=== PATIENT | female | born 1950 | race Caucasian/White ===

== ENCOUNTER → 2017-04-29 | Outpatient (CLI) | payer MEDICARE, OTHER ==
--- NOTE | 2017-05-02 07:35 | MM ---
Reason for exam: screening (asymptomatic). Last mammogram was performed 1 year ago. History: Patient is postmenopausal. Took estrogen for 2 years beginning at age 51. Physical Findings: A clinical breast exam by your physician is recommended on an annual basis and results should be correlated with mammographic findings. MG 3D Screening Mammo W/Cad Bilateral CC, MLO, and XCCL view(s) were taken. Prior study comparison: April 16, 2016, bilateral MG screening mammo w CAD. There are scattered fibroglandular densities. Finding: There is a increased 4 mm equal density, indistinct irregular mass located 6 cm from the nipple in the lower outer quadrant, anterior position of the left breast. New finding since April 16, 2016. ASSESSMENT: Incomplete: need additional imaging evaluation, BI-RAD 0 RECOMMENDATION: Special view mammogram of the left breast. If lesion persists on supplemental views, image directed ultrasound is recommended. [facility] will attempt to contact patient to return for supplemental views and ultrasound if indicated.
== END | disposition home or self-care (01) ==
LOC: RADMAMWWP 10:56
PROVIDERS: ATTEND Family Medicine
DX: Z12.31 Encounter for screening mammogram for malignant neoplasm of breast (principal)
CPT/HCPCS: 77063; G0202

== ENCOUNTER → 2017-05-12 | Outpatient (CLI) | payer MEDICARE, OTHER ==
--- NOTE | 2017-05-12 14:49 | MM ---
Reason for exam: additional evaluation requested from abnormal screening. Last mammogram was performed less than 1 month ago. History: Patient is postmenopausal. Took estrogen for 2 years beginning at age 51. Physical Findings: Nurse did not find any significant physical abnormalities on exam. MG 3D Work Up W/Cad LT CC, MLO, and ML view(s) were taken of the left breast. Prior study comparison: April 29, 2017, bilateral MG 3d screening mammo w/cad. April 16, 2016, bilateral MG screening mammo w CAD. April 11, 2015, bilateral MG screening mammo w CAD. April 06, 2014, bilateral MG screening mammo w CAD. The asymmetry disperses on spot tomosynthesis CC view. On spot tomosynthesis MLO view no underlying mass or architectural distortion is seen. Some asymmetric density persists and a precautionary 6 month follow up is recommended. These results were verbally communicated with the patient and result sheet given to the patient on 05/12/17. ASSESSMENT: Probably benign, BI-RAD 3 RECOMMENDATION: Follow-up diagnostic mammogram of the left breast in 6 months.
== END | disposition home or self-care (01) ==
LOC: RADMAMWWP 13:53
PROVIDERS: ATTEND Family Medicine
DX: R92.8 Other abnormal and inconclusive findings on diagnostic imaging of breast (principal)
CPT/HCPCS: G0206; G0279

== ENCOUNTER → 2017-11-17 | Outpatient (CLI) | payer MEDICARE, OTHER ==
--- NOTE | 2017-11-17 11:02 | MM ---
Reason for exam: follow-up at short interval from prior study. Last mammogram was performed 6 months ago. History: Patient is postmenopausal. Took estrogen for 2 years beginning at age 51. Physical Findings: Nurse Summary: nodule in the left breast at 7 o'clock (nurse ms). MG 3D Diag Mammo W/Cad LT CC and MLO view(s) were taken of the left breast. Prior study comparison: May 12, 2017, left breast MG 3d work up w/cad LT. April 29, 2017, bilateral MG 3d screening mammo w/cad. There are scattered fibroglandular densities. Finding: There are typically benign round calcifications in the left breast. There is no discrete abnormality. These results were verbally communicated with the patient and result sheet given to the patient on 11/17/17. ASSESSMENT: Benign, BI-RAD 2 RECOMMENDATION: Return to routine screening mammogram schedule for both breasts. Back on schedule.
== END | disposition home or self-care (01) ==
LOC: RADMAMWWP 10:02
PROVIDERS: ATTEND Family Medicine
DX: R92.8 Other abnormal and inconclusive findings on diagnostic imaging of breast (principal)
CPT/HCPCS: 77065; G0279

== ENCOUNTER → 2018-05-14 | Outpatient (CLI) | payer MEDICARE, OTHER ==
--- NOTE | 2018-05-14 14:31 | MM ---
Reason for exam: screening (asymptomatic). Last mammogram was performed 6 months ago. History: Patient is postmenopausal. Took estrogen for 2 years beginning at age 51. Physical Findings: A clinical breast exam by your physician is recommended on an annual basis and results should be correlated with mammographic findings. MG 3D Screening Mammo W/Cad Bilateral CC and MLO view(s) were taken. Prior study comparison: November 17, 2017, left breast MG 3d diag mammo w/cad LT. May 12, 2017, left breast MG 3d work up w/cad LT. There are scattered fibroglandular densities. There are benign appearing round calcifications in the left breast. Asymmetric breast tissue in the left breast stable from 2017. There is no discrete abnormality. ASSESSMENT: Benign, BI-RAD 2 RECOMMENDATION: Routine screening mammogram of both breasts in 1 year.
== END | disposition home or self-care (01) ==
LOC: RADMAMWWP 09:50
PROVIDERS: ATTEND Family Medicine
DX: Z12.31 Encounter for screening mammogram for malignant neoplasm of breast (principal)
CPT/HCPCS: 77063; 77067

== ENCOUNTER → 2019-03-22 | Outpatient (CLI) | payer MEDICARE ==
--- NOTE | 2019-03-22 14:05 | BD ---
EXAMINATION TYPE: Axial Bone Density DATE OF EXAM: 03/22/2019 COMPARISON: 2002 CLINICAL HISTORY: Disorder of bone, M 89.9 Height: 70.5 Weight: 172 FRAX RISK QUESTIONS: Alcohol (3 or more units per day): no Family History (Parent hip fracture): unsure Glucocorticoids (More than 3mos): no (Ex: prednisone, prednisolone, methylprednisolone, dexamethasone, and hydrocortisone). History of Fracture in Adulthood: yes Secondary Osteoporosis: 1. Type 1 Diabetes: no 2. Hyperthyroidism: no 3. Menopause before 45: no 4. Malnutrition: no 5. Chronic liver disease: no Rheumatoid Arthritis: no Current Tobacco Use: no RISK FACTORS HISTORY OF: History of Wrist Fracture: yes When: about 20 years ago Family History of Osteoporosis: unsure Active: yes Diet low in dairy products/other sources of calcium: no Postmenopausal woman: yes Take estrogen and/or progesterone medications: not now How long: about age [age] Lost more than 2 inches in height since high school: no Frequent falls: no Poor Health: no Hyperparathyroidism: no Adrenal Insufficiency: no MEDICATIONS: Thyroid Medications: no Osteoporosis Medications: not now Which medication: Fosamax How Long: unsure Additional Medications: calcium, blood pressure meds, water pills Additional History: none to note EXAM MEASUREMENTS: Bone mineral densitometry was performed using the [employer] System. Bone mineral density as measured about the Lumbar spine is: ----- L1-L4(G/cm2): 1.134 T Score Values are as follows: ----- L2: 0.0 ----- L3: -1.2 ----- L4: 0.9 ----- L1-L4: -0.4 Bone mineral density has: Increased 15.0% since study of: 11/02/2002 Bone mineral density about the R hip (g/cm2):0.813 Bone mineral density about the L hip (g/cm2): 0.875 T Score values are as follows: -----R Neck: -1.6 -----L Neck: -1.2 -----R Total: -1.4 -----L Total: -1.0 Bone mineral density has: Increased 10.0% since study of: 11/02/2002 IMPRESSION: Osteopenia (T Score between -2.5 and -1). There is slightly increased risk of fracture and the patient may be considered for treatment. Re-Screen 2-5 years. NOTE: T-SCORE=SD OF THE YOUNG ADULT MEAN.
== END | disposition home or self-care (01) ==
LOC: RADBDWWP 08:21
PROVIDERS: ATTEND Family Medicine
DX: M85.89 Other specified disorders of bone density and structure, multiple sites (principal)
CPT/HCPCS: 77080

== ENCOUNTER → 2019-05-28 | Outpatient (CLI) | payer MEDICARE ==
--- NOTE | 2019-06-01 10:08 | MM ---
Reason for exam: screening (asymptomatic). Last mammogram was performed 1 year ago. History: Patient is postmenopausal. Took estrogen for 2 years beginning at age 51. Physical Findings: A clinical breast exam by your physician is recommended on an annual basis and results should be correlated with mammographic findings. MG 3D Screening Mammo W/Cad Bilateral CC and MLO view(s) were taken. Prior study comparison: May 14, 2018, bilateral MG 3d screening mammo w/cad. November 17, 2017, left breast MG 3d diag mammo w/cad LT. The breast tissue is heterogeneously dense. This may lower the sensitivity of mammography. No suspicious abnormality. No significant changes when compared with prior studies. ASSESSMENT: Negative, BI-RAD 1 RECOMMENDATION: Routine screening mammogram of both breasts in 1 year.
== END | disposition home or self-care (01) ==
LOC: RADMAMWWP 09:26
PROVIDERS: ATTEND Family Medicine
DX: Z12.31 Encounter for screening mammogram for malignant neoplasm of breast (principal)
CPT/HCPCS: 77063; 77067

== ENCOUNTER → 2020-06-14 | Outpatient (CLI) | payer MEDICARE ==
--- NOTE | 2020-06-19 13:29 | MM ---
Reason for exam: screening (asymptomatic). Last mammogram was performed 1 year and 1 month ago. History: Patient is postmenopausal. Took estrogen for 2 years beginning at age 51. Physical Findings: A clinical breast exam by your physician is recommended on an annual basis and results should be correlated with mammographic findings. MG 3D Screening Mammo W/Cad Bilateral CC and MLO view(s) were taken. Prior study comparison: May 28, 2019, bilateral MG 3d screening mammo w/cad. May 14, 2018, bilateral MG 3d screening mammo w/cad. There are scattered fibroglandular densities. There are benign appearing round calcifications in the left breast. There is no discrete abnormality. ASSESSMENT: Benign, BI-RAD 2 RECOMMENDATION: Routine screening mammogram of both breasts in 1 year.
== END | disposition home or self-care (01) ==
LOC: RADMAMWWP 11:45
PROVIDERS: ATTEND Family Medicine
DX: Z12.31 Encounter for screening mammogram for malignant neoplasm of breast (principal)
CPT/HCPCS: 77063; 77067

== ENCOUNTER → 2021-06-19 | Outpatient (CLI) | payer MEDICARE ==
--- NOTE | 2021-06-21 10:24 | MM ---
Reason for exam: screening (asymptomatic). Last mammogram was performed 1 year ago. History: Patient is postmenopausal. Took estrogen for 2 years beginning at age 51. Physical Findings: A clinical breast exam by your physician is recommended on an annual basis and results should be correlated with mammographic findings. MG 3D Screening Mammo W/Cad Bilateral CC, MLO, and XCCL view(s) were taken. Prior study comparison: June 14, 2020, bilateral MG 3d screening mammo w/cad. May 28, 2019, bilateral MG 3d screening mammo w/cad. There are scattered fibroglandular densities. No significant changes when compared with prior studies. ASSESSMENT: Benign, BI-RAD 2 RECOMMENDATION: Routine screening mammogram of both breasts in 1 year.
== END | disposition home or self-care (01) ==
LOC: RADMAMWWP 11:06
PROVIDERS: ATTEND Family Medicine
DX: Z12.31 Encounter for screening mammogram for malignant neoplasm of breast (principal)
CPT/HCPCS: 77063; 77067

== ENCOUNTER → 2022-06-20 | Outpatient (CLI) | payer MEDICARE ==
--- NOTE | 2022-06-20 17:08 | BD ---
EXAMINATION TYPE: Axial Bone Density DATE OF EXAM: 06/20/2022 CLINICAL HISTORY: 72 years year old Female. ICD-10 CODE: Z78.0 asymptomatic Height: 5 FT 10 IN Weight: 152 FRAX RISK QUESTIONS: Alcohol (3 or more units per day): NO Family History (Parent hip fracture): NO Glucocorticoids (More than 3mos): NO (Ex: prednisone, prednisolone, methylprednisolone, dexamethasone, and hydrocortisone). History of Fracture in Adulthood: YES Secondary Osteoporosis: 1. Type 1 Diabetes: NO 2. Hyperthyroidism: NO 3. Menopause before 45: NO 4. Malnutrition: NO 5. Chronic liver disease: NO Rheumatoid Arthritis: NO Current Tobacco Use: NO RISK FACTORS HISTORY OF: History of Wrist Fracture: LEFT WRIST When: 40 YEARS AGO Surgery to Spine/Hip(right/left)/Wrist (right/left): NO Family History of Osteoporosis: YES Active: YES Diet low in dairy products/other sources of calcium: NO Postmenopausal woman: YES Take estrogen and/or progesterone medications: NONE NOW Lost more than 2 inches in height since high school: YES Frequent falls: NO Poor Health: GOOD Hyperparathyroidism: NO Adrenal Insufficiency: NO MEDICATIONS: Additional Medications: BLOOD PRESSURE MEDS, H2O PILL ,XANAX WHEN NEEDED Additional History: EXAM MEASUREMENTS: Bone mineral densitometry was performed using the [employer] System. Bone mineral density as measured about the Lumbar spine is: ----- L1-L4(G/cm2): 1.114 T Score Values are as follows: ----- L1: -1.5 ----- L2: -0.3 ----- L3: -1.2 ----- L4: 0.5 ----- L1-L4: -0.5 Bone mineral density has: DECREASED -2.2 % since study of: 2018 Bone mineral density about the R hip (g/cm2): 0.799 Bone mineral density about the L hip (g/cm2): 0.832 T Score values are as follows: -----R Neck: -1.7 -----L Neck: -1.5 -----R Total: -1.7 -----L Total: -1.2 Bone mineral density has: DECREASED -4.0 % since study of: 2019 FRAX%s: The graph provided illustrates a 16.4 % chance for a major osteoporotic fx and a 3.3 % chance for the hips probability for fx in 10 years time. IMPRESSION: Osteopenia (T Score between -2.5 and -1). There is slightly increased risk of fracture and the patient may be considered for treatment. Re-Screen 2-5 years. NOTE: T-SCORE=SD OF THE YOUNG ADULT MEAN.
--- NOTE | 2022-06-21 09:57 | MM ---
Reason for Exam: Screening (asymptomatic). Last screening mammogram was performed 12 month(s) ago. Patient History: Menarche at age 11. First Full-Term at age 20. Postmenopausal. Estrogen for 2 years from age 51 until age 53. Risk Values: Vivian 5 year model risk: 1.6%. NCI Lifetime model risk: 3.9%. Prior Study Comparison: 04/29/2017 Bilateral Screening Mammogram, [facility]. 05/12/2017 Left Diagnostic Mammogram, [facility]. 11/17/2017 Left Diagnostic Mammogram, [facility]. 05/14/2018 Bilateral Screening Mammogram, [facility]. 05/28/2019 Bilateral Screening Mammogram, [facility]. 06/14/2020 Bilateral Screening Mammogram, [facility]. 06/19/2021 Bilateral Screening Mammogram, [facility]. Tissue Density: There are scattered fibroglandular densities. Findings: Analyzed By CAD. There is no suspicious group of microcalcifications or new suspicious mass in either breast. Overall Assessment: Negative, BI-RAD 1 Management: Screening Mammogram of both breasts in 1 year. A clinical breast exam by your physician is recommended on an annual basis and results should be correlated with mammographic findings. [facility] will attempt to contact patient to return for supplemental views and ultrasound if indicated. Electronically signed and approved by: Sandro Chacon DO
== END | disposition home or self-care (01) ==
LOC: RADMAMWWP 10:44
PROVIDERS: ATTEND Family Medicine
DX: Z12.31 Encounter for screening mammogram for malignant neoplasm of breast (principal); Z78.0 Asymptomatic menopausal state
CPT/HCPCS: 77063; 77067; 77080

== ENCOUNTER → 2023-06-23 | Outpatient (CLI) | payer MEDICARE ==
--- NOTE | 2023-06-24 12:12 | MM ---
Reason for Exam: Screening (asymptomatic). Last screening mammogram was performed 12 month(s) ago. Patient History: Menarche at age 11. First Full-Term at age 20. Postmenopausal. Estrogen for 2 years from age 51 until age 53. Risk Values: Vivian 5 year model risk: 1.6%. NCI Lifetime model risk: 3.7%. Prior Study Comparison: 06/14/2020 Bilateral Screening Mammogram, [facility]. 06/19/2021 Bilateral Screening Mammogram, [facility]. 06/20/2022 Bilateral MG 3D screening mammo w/cad, [facility]. Tissue Density: There are scattered fibroglandular densities. Findings: Analyzed By CAD. Pattern appears symmetrical and stable. No significant interval change is evident. Benign spherical calcifications are present within the left breast. Vascular calcifications within the right breast. No suspicious groups of microcalcifications, spiculated or lobular masses, architectural distortion or other secondary signs of malignancy are mammographically apparent. Overall Assessment: Benign, BI-RAD 2 Management: Screening Mammogram of both breasts in 1 year. A negative mammogram report should not preclude additional follow up of suspicious palpable abnormalities. Patient should continue monthly self breast exam. A clinical breast exam by your physician is recommended on an annual basis and results should be correlated with mammographic findings. Electronically signed and approved by: Elías Jeong D.O. Radiologis
== END | disposition home or self-care (01) ==
LOC: RADMAMWWP 09:51
PROVIDERS: ATTEND Family Medicine
DX: Z12.31 Encounter for screening mammogram for malignant neoplasm of breast (principal); Z78.0 Asymptomatic menopausal state
CPT/HCPCS: 77063; 77067

== ENCOUNTER 2024-07-16 08:32 | Day surgery (SDC) | payer MEDICARE ==
[~2024-07-16 08:32] MED LIST: SODIUM CHLORIDE 0.9% 1,000 ML IV SCH
[2024-07-16 08:57] VITALS: TEMP 97.5
[2024-07-16] MEDS: SODIUM CHLORIDE 0.9% 500 ML 500 ML IV SCH (09:32)
[2024-07-16] MEDS: hydrALAZINE HCL 20 MG/ML 1 ML VIAL IVP STA (09:34)
[2024-07-16] MEDS: IV FLUID CONTINUATION 500 ML IV ONE (09:37)
[2024-07-16] MEDS ORDERED: LIDOCAINE 1% INJ 10MG/ML (20 ML MDV) ONE (10:00)
[2024-07-16] MEDS ORDERED: PROPOFOL 10 MG/ML 20 ML VIAL IV ONE (10:00)
[2024-07-16 10:08] LABS: ALT 18 U/L (4-34); AST 25 U/L (14-36); African American GFR (CKD) 71 (>60 ml/min/1.73 sqM); Albumin 4.9 g/dL (3.5-5.0); Alkaline Phosphatase 61 U/L (38-126); Anion Gap 8 mmol/L; Blood Urea Nitrogen 17 mg/dL (7-17); Calcium 9.8 mg/dL (8.4-10.2); Carbon Dioxide 28 mmol/L (22-30); Chloride 100 mmol/L (98-107); Glucose 95 mg/dL (74-99); Non-African American GFR(CKD) 62 (>60 ml/min/1.73 sqM); Sodium 136 mmol/L (137-145); Total Bilirubin 1.1 mg/dL (0.2-1.3); Total Protein 7.7 g/dL (6.3-8.2)
[2024-07-16 11:29] VITALS: RESP 16
[2024-07-16 12:11] VITALS: BP 155/88; PULSE 80
--- NOTE | 2024-07-16 13:07 | P.TEE ---
Date of Procedure: 07/16/24 Description of Procedure(s): Procedure performed: 1. Transesophageal Echocardiogram. With spectral Doppler, color Doppler, bubble study, 2. Synchronized Cardioversion. Indications: Persistent atrial fibrillation Consent: I have discussed the risks, benefits and alternative therapies for the above-mentioned procedure. The patient has indicated understanding and acceptance of the risks of the procedure. Signed consent was obtained and was placed in the paper chart. Moderate conscious sedation: Moderate conscious sedation was administered by anesthesia, see separate report. Procedural Steps: Timeout was performed in usual fashion. Patient's heart rate, blood pressure, oxygen saturation and ECG were monitored. After achieving appropriate moderate conscious sedation, KATIA KATIA probe was advanced without difficulty and without any immediate complications to the esophagus. KATIA study was performed with color flow doppler, pulsed wave doppler and continuous wave doppler. Agitated saline bubbles were injected to assess for any intra-atrial shunt. The probe was then removed. SYNCHRONIZED CARDIOVERSION After making sure that there is no evidence of intracardiac thrombus, pacer pads were placed and secured on patients chest and back. Synchronized cardioversion was perfromed using [150] J. [1] attempt. Sinus rhythm was confirmed with a 12 lead EKG. Patient tolerated the procedure well. Patient was transferred to the post procedure area in stable and satisfactory condition. Complications: none Blood loss: none FINDINGS Left Atrium: Severely dilated LA. No evidence of mass or thrombus seen Left Atrial Appendage: No evidence of thrombus or mass seen in HUMBERTO,. Dilated left atrial appendage. Inter atrial septum: Intact inter-atrial septum. No evidence of atrial septal defect or patent foramen ovale on color doppler. No evidence of intracardiac shunting from right to left on the bubble study. Left Ventricle: Normal global LV size and systolic function Right Atrium: Normal overall RA size Right Ventricle: Normal global RV size and systolic function Aortic Valve: Structurally normal Trileaflet, no significant calcification. No significant stenosis or regurgitation on color doppler assessment. Mitral Valve: Struturally normal. No evidence of prolapse. Mild mitral regurgitation, likely functional. Pulmonic Valve: Mild pulmonic regurgitation Tricuspid Valve: Structurally normal. Mild tricuspid regurgitation. Ascending aorta, Aortic root and Aortic arch: Mild intimal thickening. Normal size ascending aorta 3.5 cm. Descending aorta: Mild intimal thickening. CONCLUSION: Severe left atrial dilatation No evidence of thrombus in left atrial appendage or left atrium. Preserved LV size and systolic function No major valvular abnormality Successful cardioversion 1 attempt 150 J. Plan Continue Eliquis without interruption, continue metoprolol succinate 50 mg daily. Follow-up outpatient in cardiology office. Ashkan Humphreys MD, RPVI, FACC Thank you for allowing [facility] to participate in this patient's care. Feel free to reach out in case of any followup questions.
== END 2024-07-16 12:28 | disposition home or self-care (01) ==
LOC: OR 08:32
PROVIDERS: ATTEND Student in an Organized Health Care Education/Training Program
DX: I51.7 Cardiomegaly (principal); I48.19 Other persistent atrial fibrillation; I10 Essential (primary) hypertension; F17.210 Nicotine dependence, cigarettes, uncomplicated; Z91.89 Other specified personal risk factors, not elsewhere classified; Z96.659 Presence of unspecified artificial knee joint; Z79.01 Long term (current) use of anticoagulants; Z82.49 Family history of ischemic heart disease and other diseases of the circulatory system
CPT/HCPCS: 93312; 93320; 93325; 92960; 80053; J0360; J2003; J2704

== ENCOUNTER → 2024-07-28 | Outpatient (CLI) | payer MEDICARE ==
--- NOTE | 2024-07-29 18:53 | MM ---
Reason for Exam: Screening (asymptomatic). Last mammogram was performed 1 year(s) and 2 month(s) ago. Patient History: Menarche at age 11. First Full-Term at age 20. Postmenopausal. Estrogen for 2 years from age 51 until age 53. Risk Values: Vivian 5 year model risk: 1.6%. NCI Lifetime model risk: 3.4%. Prior Study Comparison: 06/19/2021 Bilateral Screening Mammogram, [facility]. 06/20/2022 Bilateral MG 3D screening mammo w/cad, [facility]. 06/23/2023 Bilateral MG 3D screening mammo w/cad, [facility]. Tissue Density: There are scattered areas of fibroglandular density. Findings: Analyzed By CAD. There is no suspicious group of microcalcifications or new suspicious mass in either breast. Overall Assessment: Negative, BI-RAD 1 Management: Screening Mammogram of both breasts in 1 year. . Patient should continue monthly self-breast exams. A clinical breast exam by your physician is recommended on an annual basis. This exam should not preclude additional follow-up of suspicious palpable abnormalities. Note on Vivian scores and lifetime risk: 1. A Vivian score greater than 3% is considered moderate risk. If this is the case, consider specialist referral to assess eligibility for a risk reducing agent. 2. If overall lifetime risk for the development of breast cancer is 20% or higher, the patient may qualify for future screening with alternating mammogram and breast MRI. [facility], , 07/29/2024 6:50 PM. Electronically signed and approved by: Isabel Nickerson M.D. Radiologist
== END | disposition home or self-care (01) ==
LOC: RADMAMWWP 11:06
PROVIDERS: ATTEND Family Medicine
DX: Z12.31 Encounter for screening mammogram for malignant neoplasm of breast (principal); Z78.0 Asymptomatic menopausal state; R92.323 Mammographic fibroglandular density, bilateral breasts
CPT/HCPCS: 77063; 77067

== ENCOUNTER 2024-11-15 05:33 | Day surgery (SDC) | payer MEDICARE ==
[2024-11-15] MEDS: SODIUM CHLORIDE 0.9% 1,000 ML IV SCH (06:35)
[2024-11-15] MEDS ORDERED: MIDAZOLAM 2 MG/2 ML VIAL IV PRN (07:00)
[2024-11-15] MEDS ORDERED: HYDROmorphone 0.5 MG/0.5 ML SYRINGE IVP PRN (07:00)
[2024-11-15] MEDS: IV FLUID CONTINUATION 1,000 ML IV ONE (07:08)
[2024-11-15] MEDS ORDERED: LIDOCAINE 1% INJ 10MG/ML (20 ML MDV) ONE (07:16)
[2024-11-15] MEDS ORDERED: PHENYLEPHRINE 10 MG/ML VIAL ONE (07:16)
[2024-11-15] MEDS ORDERED: HEPARIN SODIUM,PORCINE 10,000 UNIT/ML 1 ML VIAL ONE (07:16)
[2024-11-15] MEDS ORDERED: PHENYLEPHRINE-0.9% NACL SYG 1,000 MCG/10 ML SYRINGE ONE (07:16)
[2024-11-15] MEDS ORDERED: PROPOFOL 10 MG/ML 20 ML VIAL IV ONE (07:16)
[2024-11-15] MEDS ORDERED: SUCCINYLCHOLINE CHLORIDE 200 MG/10 ML VIAL IV ONE (07:16)
[2024-11-15] MEDS ORDERED: MIDAZOLAM 2 MG/2 ML VIAL ONE (07:16)
[2024-11-15] MEDS ORDERED: fentaNYL (PF) 50 MCG/ML 2 ML AMP ONE (07:16)
[2024-11-15] MEDS: HEPARIN SOD,PORK IN 0.45% NACL 25,000 UNIT in 0.45% NACL 1 250ML.BAG IV ONE (07:24)
[2024-11-15] MEDS: HEPARIN SODIUM,PORCINE 10,000 UNIT in SODIUM CHLORIDE 0.9% 1,000 ML IRRIGATION ONE (07:24)
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
[2024-11-15] MEDS: LIDOCAINE 1% INJ 10MG/ML (20 ML MDV) SQ ONE (08:26)
[2024-11-15] MEDS: IOPAMIDOL-370 100ML BTL INJ ONE (10:46)
[2024-11-15] MEDS ORDERED: ALPRAZolam 0.25 MG TAB PO PRN (10:59)
--- NOTE | 2024-11-15 11:50 | P.EPPROC ---
- EP Procedure Note Electrophysiology Procedure Note: PROCEDURE A. fib ablation with PVI, left atrial septal ablation and left atrial roof/upper posterior wall ablation DIAGNOSIS Persistent atrial fibrillation, symptomatic, refractory to therapy Severe left atrial enlargement by KATIA RESULT No left atrial appendage mass seen on intracardiac echo, preserved LV function and size Severe left atrial enlargement, mildly thickened pericardium without effusion Successful A. fib ablation/pulmonary vein isolation of all veins using cryo- ablation Complete entrance block in all 4 veins confirmed Transient, phrenic nerve paresis with recovery during the procedure Ablation of the left atrial posterior wall Ablation of the left atrial septum Esophageal deflection YES Electrical cardioversion with a synchronized shock across the chest YES / NO PROCEDURE DETAILS Written informed consent prior to procedure. Patient brought to the EP lab. General anesthesia given. Heparin administered. A city maintained above 300 seconds Both groins prepped and draped per protocol and venous sheaths placed. Esophagus intubated, circa catheter for temperature monitoring an endoscope for possible esophageal deflection. Phrenic nerve monitoring performed. Esophageal temperature monitoring performed. Esophageal deflection performed if circa catheter overlapping with the balloon or circa temperature less than 27.5C Intracardiac echocardiography performed. Pericardium evaluated. Left atrial appendage evaluated. Left atrium evaluated along with pulmonary veins Transseptal catheterization performed under fluoroscopic guidance and intracardiac echo guidance Cryoablation sheath exchanged, balloon catheter along with achieve catheter placed in the left atrium. Pulmonary veins isolated in the following sequence: Left superior pulmonary vein followed by left inferior pulmonary vein, followed by right inferior pulmonary vein and lastly right superior pulmonary vein. Phrenic nerve stimulation along with capture thresholds within the SVC and right superior pulmonary vein to identify the phrenic nerve proximity to the cryo- balloon. Pulmonary veins isolated and confirmed with entrance and exit block. Phrenic nerve integrity confirmed at the end of the procedure Ablation of the left atrial roof/posterior wall performed with sequential lesions from the left superior to the right pulmonary veins. Ablation of the electrograms confirmed Ablation of the left atrial septum performed with cannulation of the superior branch of the right inferior to achieve ablation of the posterior septum of the left atrium. Ablation of electrograms confirmed Electrical cardioversion performed for persistence of atrial fibrillation despite successful ablation. Diagnostic catheters for the high right atrium, His bundle, coronary sinus placed. LA and RA pressures recorded RA pressure: 9/0/7 LA pressure: 15/1/7 Diagnostic EP study with coronary sinus pacing and recording Baseline measurements: Post cardioversion AH interval 106 ms and HV interval 37 ms Sinus cycle length 1108, IA interval 221 ms, QRS 110 ms and QT 494 ms Venous sheaths were removed and hemostasis assured with closure devices and [id number] suture. Patient extubated and transferred to recovery Increase procedural time Very large left atrium, very long and oblique clean set left atrial roof. Multiple ablations along the posterior wall to ensure contiguous, broad ablation from the left superior to the right inferior pulmonary vein Very large antrum of the right superior pulmonary vein with phrenic nerve paresis at about 104 seconds. This was a paresis with gradual improvement through the rest of the procedure The right superior pulmonary vein ablation was not repeated but antral level lesions were applied circumferentially for a durable effect of the previous ablation of the RS PV Catheter mapping of the pulmonary veins confirmed complete isolation at the end of the procedure Catheter mapping of the left atrial roof and upper posterior wall confirmed absence of any electrograms PROCEDURES PERFORMED Diagnostic EP study CS pacing and recording Left and right transseptal catheterization Catheter the mapping of the tachycardia Intracardiac echocardiography Pulmonary vein isolation with transseptal and comprehensive EPS, [id number] Extended procedure duration Left atrial roof line, +[id number] Linear ablation, left atrium, +[id number] Electrical cardioversion with a synchronized shock across the chest [id number]
[2024-11-15] MEDS: ACETAMINOPHEN IV (For NPO) 1,000 MG in EMPTY BAG 1 BAG IVPB ONE (12:38)
[2024-11-15 14:37] VITALS: RESP 16
[2024-11-15] MEDS: LACTATED RINGERS 1,000 ML IV SCH (14:56)
[2024-11-15] MEDS: BENZOCAINE/MENTHOL LOZENG 1 EACH LOZENGE MUCOUS MEM PRN (15:19)
[2024-11-15 20:26] VITALS: PULSE 80
[2024-11-15] MEDS: DABIGATRAN 150 MG CAP PO SCH (21:58)
[2024-11-15] MEDS: ACETAMINOPHEN TAB 325 MG TAB PO PRN (22:10)
[2024-11-16] MEDS: LOSARTAN 50 MG TAB PO SCH (08:07)
[2024-11-16] MEDS: LOSARTAN-HCTZ 50-12.5 MG 1 EACH TAB PO SCH (08:07)
[2024-11-16 08:50] VITALS: BP 133/71; TEMP 97.5
== END 2024-11-16 10:52 | disposition home or self-care (01) ==
LOC: CATHEP 05:33 → 6NMEDSUR 13:17 → CATHEP 11-16 10:52
PROVIDERS: ATTEND Internal Medicine Clinical Cardiac Electrophysiology
DX: I48.19 Other persistent atrial fibrillation (principal); I11.9 Hypertensive heart disease without heart failure; R06.02 Shortness of breath; R00.2 Palpitations; Z86.718 Personal history of other venous thrombosis and embolism; Z87.891 Personal history of nicotine dependence; Z79.02 Long term (current) use of antithrombotics/antiplatelets
CPT/HCPCS: 92960; 93656; 93657; 86900; 86901; 84443; 86850; C1894; C1769 ×2; C1760; C1730 ×2; C1759; C1733; C1766; J1644 ×2; J2003; J0131; Q9967